=== PATIENT | male | born 1995 | race Caucasian/White ===

== ENCOUNTER 2020-08-17 20:55 | Emergency (ER) | payer OTHER ==
[~2020-08-17 20:55] MED LIST: AUGMENTIN 875-1 EACH PO; FIORICET1 EACH PO; IBUPROFEN800 MG PO; PERCOCET 5-3251 EACH PO
[2020-08-18 00:06] LABS: AMPHETAMINES NEGATIVE (NEGATIVE); BARBITURATES NEGATIVE (NEGATIVE); ECSTASY (MDMA) NEGATIVE (NEGATIVE); MARIJUANA (THC) NEGATIVE (NEGATIVE); METHADONE NEGATIVE (NEGATIVE); OPIATES NEGATIVE (NEGATIVE); OXYCODONE NEGATIVE (NEGATIVE)
[2020-08-18 00:08] LABS: BILIRUBIN NEGATIVE (NEGATIVE); BLOOD NEGATIVE Ery/uL (NEGATIVE); CLARITY CLEAR (CLEAR); COLOR YELLOW (YELLOW); GLUCOSE (U) NORMAL (NORMAL); LEUKOCYTES NEGATIVE Leu/uL (NEGATIVE); NITRITE NEGATIVE (NEGATIVE); PROTEIN NEGATIVE (NEGATIVE); SPECIFIC GRAVITY 1.015 (1.001-1.030); UROBILINOGEN 0.2 mg/dL (0.2-1.0)
== END 2020-08-18 07:49 | disposition other institution (70) ==
LOC: FER 20:55
PROVIDERS: Emergency Medicine
DX: S00.83XA Contusion of other part of head, initial encounter (principal); F17.210 Nicotine dependence, cigarettes, uncomplicated; F32.9 Major depressive disorder, single episode, unspecified; Z20.822 Contact with and (suspected) exposure to COVID-19
CPT/HCPCS: 36415; 70450; 70486; 72125; 80305; 81003; G0480; U0002

== ENCOUNTER 2020-09-14 00:17 | Emergency (ER) | payer OTHER ==
[2020-09-14 01:13] LABS: BASOPHIL 0.7 % (0-2); EOSINOPHIL 0.4 % (0-5); HCT 42.6 % (42.0-52.0); LYMPHOCYTE 35.2 % (15-48); MCH 32.8 pg (25.0-31.0); MCHC 35.2 g/dL (32.0-36.0); MCV 93.2 fL (78.0-100.0); MONOCYTE 9.7 % (0-12); MPV 9.8 fL (6.0-9.5); NEUTROPHIL 53.5 % (41-80); NRBC 0; PLT 214 K/uL (150-400); RBC 4.57 M/uL (4.70-6.00); RDW 12.4 % (11.5-14.0); WBC 8.3 K/uL (4.0-10.5)
[2020-09-14 01:29] LABS: ALBUMIN 4.3 g/dL (3.4-5.0); ALKALINE PHOSHATASE 61 U/L (46-116); ALT 17 U/L (16-63); AST 27 U/L (15-37); BILIRUBIN - TOTAL 1.1 mg/dL (0.2-1.0); BUN 19 mg/dL (7-18); BUN/CREAT RATIO (CALC) 20.7 RATIO; CHLORIDE 100 mmol/L (98-107); CO2 (BICARBONATE) 28 mmol/L (21-32); CREATININE 0.92 mg/dL (0.67-1.17); GLOBULIN (CALCULATION) 3.4 g/dL; GLUCOSE 92 mg/dL (74-106); POTASSIUM 3.4 mmol/L (3.5-5.1); TOTAL PROTEIN 7.7 g/dL (6.4-8.2)
== END 2020-09-14 03:36 | disposition home or self-care (01) ==
LOC: FER 00:17
PROVIDERS: Emergency Medicine
DX: T40.1X1A Poisoning by heroin, accidental (unintentional), initial encounter (principal); F17.200 Nicotine dependence, unspecified, uncomplicated
CPT/HCPCS: 36415; 80053; 85025; G0480; J2310

== ENCOUNTER 2020-10-14 17:20 | Emergency (ER) | payer OTHER ==
[2020-10-14] MEDS ORDERED: AUGMENTIN 875-1 EACH PO (18:21)
== END 2020-10-14 18:50 | disposition home or self-care (01) ==
LOC: FER 17:20
DX: L03.114 Cellulitis of left upper limb (principal); F17.210 Nicotine dependence, cigarettes, uncomplicated
CPT/HCPCS: 99283